=== PATIENT | female | born 1995 | race Two or more races ===

== ENCOUNTER 2017-12-12 18:13 | Emergency (ER) | payer OTHER ==
[2017-12-12 18:46] VITALS: BP 143/88
[2017-12-12] MEDS ORDERED: IBUPROFEN 800 MG TABLET PO ONE (19:09)
[2017-12-12] MEDS ORDERED: ONDANSETRON 4 MG TAB.RAPDIS PO ONE (19:09)
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
== END 2017-12-12 20:25 | disposition home or self-care (01) ==
LOC: ER 18:13
DX: T22.011A Burn of unspecified degree of right forearm, initial encounter (principal); S50.11XA Contusion of right forearm, initial encounter; R51 Headache; M79.631 Pain in right forearm; V49.40XA Driver injured in collision with unspecified motor vehicles in traffic accident, initial encounter; W22.11XA Striking against or struck by driver side automobile airbag, initial encounter
CPT/HCPCS: 99284; 73090; S0119